=== PATIENT | female | born 1985 | race Caucasian/White ===

== ENCOUNTER → 2017-01-10 | Outpatient (CLI) | payer OTHER ==
[~2017-01-10] MED LIST: CYCL10TA9 PO; DOXY100C2 PO; HYDR-3812 PO; METH4TAB PO; NAPR500T PO; NAPR550T PO; PRD20T PO
--- NOTE | 2017-01-10 17:28 | Diagnostic Imaging Report ---
PROCEDURE: MRI lumbar spine. TECHNIQUE: Multiplanar, multisequence MRI of the lumbar spine was performed without contrast. INDICATION: Low back pain. FINDINGS: There are no previous MRI examinations available for comparison. The plain film examination of the lumbar spine performed on 04/10/2016 noted minimal narrowing of the disc space at L5-S1. There is no acute bony abnormality identified. On the T2 parasagittal images of this exam, there is mild narrowing and desiccation of the disc at L5-S1. There is a broad-based disc bulge eccentric to the left at this level. The disc compresses the left ventral aspect of the thecal sac and narrows the AP diameter to 7.9 mm. The disc is also in close proximity to the origin of both exiting nerve roots. The other intervertebral spaces are well maintained. There is no evidence for spinal stenosis or nerve root encroachment at any other level. There is no abnormal signal arising from the cord or the vertebral bodies to indicate an acute abnormality. There is no sign of a paraspinal mass. IMPRESSION: 1. There is a disc bulge centrally at L5-S1. The disc compresses the left ventral aspect of the thecal sac and does result in moderate central stenosis. The disc material is also in close proximity to the origin of the exiting nerve roots at this level. 2. The remainder of the lumbar spine is unremarkable for spinal stenosis or nerve root encroachment. 3. There is no sign of an acute bony abnormality or of a cord lesion. Dictated by: Dictated on workstation # [id number]
== END ==
LOC: RAD 15:27
DX: M51.16 Intervertebral disc disorders with radiculopathy, lumbar region (principal); M48.06 Spinal stenosis, lumbar region
CPT/HCPCS: 72148

== ENCOUNTER 2017-07-12 13:14 | Emergency (ER) | payer OTHER ==
[~2017-07-12] VITALS: Ht 162.6 cm; Wt 85.7 kg
[~2017-07-12 13:14] MED LIST changes: +ACHD5005 PO; -HYDR-3812 PO; +NAPR-1070 PO; +NAPR-1071 PO; -NAPR500T PO; -NAPR550T PO
--- NOTE | 2017-07-12 13:34 | ED Neurological Problem ---
General Stated Complaint: DIZZINESS Source: patient Exam Limitations: no limitations History of Present Illness Date Seen by Provider: Jul 12, 2017 Time Seen by Provider: 13:33 Initial Comments To ER per private vehicle with reports of left hand numbness and difficulty speaking. She awakened this morning and went to the grocery store. At about 1: 00 after returning home from the grocery store she had trouble buttoning her pants. She had difficulty speaking and tingling and numbness in the left hand. She's never had this before. She is crying and tearful on arrival to ER. She denies headache. Timing/Duration: 1 week Severity: moderate Associated Symptoms: paresthesia Allergies and Home Medications Allergies Coded Allergies: No Known Drug Allergies (Verified , 04/10/16) Home Medications No Active Prescriptions or Reported Meds Constitutional: see HPI Eyes: No Symptoms Reported Ears, Nose, Mouth, Throat: no symptoms reported Respiratory: no symptoms reported Cardiovascular: no symptoms reported Genitourinary: no symptoms reported Musculoskeletal: no symptoms reported Skin: no symptoms reported Psychiatric/Neurological: See HPI, Denies Headache Endocrine: No Symptoms Reported Past Icglvaw-Wvivvb-Zeeosw Hx Patient Social History Recent Foreign Travel: No Contact w/Someone Who Travel: No Recent Hopitalizations: Yes Immunizations Up To Date Tetanus Booster (TDap): More than 5yrs Reproductive System Hx Reproductive Disorders: No Gastrointestinal Gastrointestinal Disorders: Gall Bladder Disease Musculoskeletal Musculoskeletal Disorders: Chronic Back Pain Family Medical History Significant Family History: No Pertinent Family Hx Physical Exam Vital Signs Vital Sign - Last 12Hours 07/12/17 13:22 Temp 97.6 Pulse 88 Resp 18 B/P (MAP) 154/88 (110) Pulse Ox 98 O2 Delivery Room Air Capillary Refill : General Appearance: WD/WN, no apparent distress HEENT: PERRL/EOMI, normal ENT inspection Neck: non-tender, full range of motion Respiratory: normal breath sounds, no respiratory distress, no accessory muscle use Cardiovascular: regular rate, rhythm, no murmur Gastrointestinal: normal bowel sounds, non tender, soft Neurologic/Psychiatric: alert, normal mood/affect, oriented x 3, other (tearful ) Crainal Nerves: normal hearing, normal speech Skin: normal color, warm/dry Comments While I was in the room with her speaking to her she did appear to become more calm. During my conversation with her she states that the tingling and numbness in the left hand resolved and speech became more clear. Whether this is a result of her calming down from anxiety or not is uncertain at this time. Proceeding with stroke evaluation. Stroke Onset of Symptoms Date of Onset of Symptoms: Jul 12, 2017 Time of Symptom Onset: 13:00 Onset of Symptoms: Yes NIH Stroke Scale Assessment Select: Initial Level of Consciousness: 0=Alert (0), Level of Consciousness- Questions: 0=Answers both month/age (0), LOC Commands: 0=Performs both tasks (0) , Gaze: Normal (0), Visual Schmitt: 0=No visual loss (0), Facial Movement ( Facial Paresis): 0=Normal symmetrical mnt (0), Motor Function-Arms Right: 0=No drift (0), Motor Function-Arms Left: 0=No drift (0), Motor Function-Legs Right: 0=No drift (0), Motor Function-Legs Left: 0=No drift (0), Limb Ataxia: 0=Absent (0), Sensory: 1=Mild to Moderate loss (1), Best Language: 0=No aphasia (0), Dysarthria: 1=Mild to moderate loss (1), Extinction & Inattention: 0=No abnormality (0), Total: 2 Progress/Results/Core Measures Results/Orders Lab Results Laboratory Tests Test 07/12/17 13:20 07/12/17 14:17 Range/Units White Blood Count 8.6 4.3-11.0 10^3/uL Red Blood Count 4.84 4.35-5.85 10^6/uL Hemoglobin 14.9 11.5-16.0 G/DL Hematocrit 42 35-52 % Mean Corpuscular Volume 88 80-99 FL Mean Corpuscular Hemoglobin 31 25-34 PG Mean Corpuscular Hemoglobin Concent 35 32-36 G/DL Red Cell Distribution Width 12.7 10.0-14.5 % Platelet Count 287 130-400 10^3/uL Mean Platelet Volume 9.7 7.4-10.4 FL Neutrophils (%) (Auto) 59 42-75 % Lymphocytes (%) (Auto) 31 12-44 % Monocytes (%) (Auto) 8 0-12 % Eosinophils (%) (Auto) 1 0-10 % Basophils (%) (Auto) 0 0-10 % Neutrophils # (Auto) 5.1 1.8-7.8 X 10^3 Lymphocytes # (Auto) 2.7 1.0-4.0 X 10^3 Monocytes # (Auto) 0.7 0.0-1.0 X 10^3 Eosinophils # (Auto) 0.1 0.0-0.3 10^3/uL Basophils # (Auto) 0.0 0.0-0.1 10^3/uL Prothrombin Time 13.3 12.2-14.7 SEC INR Comment 1.0 0.8-1.4 Activated Partial Thromboplast Time 29 24-35 SEC D-Dimer < 0.27 0.00-0.49 UG/ML Sodium Level 139 135-145 MMOL/L Potassium Level 4.1 3.6-5.0 MMOL/L Chloride Level 103 98-107 MMOL/L Carbon Dioxide Level 25 21-32 MMOL/L Anion Gap 11 5-14 MMOL/L Blood Urea Nitrogen 12 7-18 MG/DL Creatinine 0.79 0.60-1.30 MG/DL Estimat Glomerular Filtration Rate > 60 BUN/Creatinine Ratio 15 Glucose Level 91 70-105 MG/DL Calcium Level 9.5 8.5-10.1 MG/DL Total Bilirubin 0.8 0.1-1.0 MG/DL Aspartate Amino Transf (AST/SGOT) 11 5-34 U/L Alanine Aminotransferase (ALT/SGPT) 12 0-55 U/L Alkaline Phosphatase 79 40-136 U/L Troponin I < 0.30 <0.30 NG/ML Total Protein 7.4 6.4-8.2 GM/DL Albumin 4.2 3.2-4.5 GM/DL Serum Alcohol < 10 <10 MG/DL Urine Color YELLOW Urine Clarity SLIGHTLY CLOUDY Urine pH 8 5-9 Urine Specific [place] 1.010 L 1.016-1.022 Urine Protein NEGATIVE NEGATIVE Urine Glucose (UA) NEGATIVE NEGATIVE Urine Ketones NEGATIVE NEGATIVE Urine Nitrite NEGATIVE NEGATIVE Urine Bilirubin NEGATIVE NEGATIVE Urine Urobilinogen NORMAL NORMAL MG/DL Urine Leukocyte Esterase NEGATIVE NEGATIVE Urine RBC (Auto) NEGATIVE NEGATIVE Urine RBC NONE /HPF Urine WBC NONE /HPF Urine Squamous Epithelial Cells 10-25 H /HPF Urine Crystals NONE /LPF Urine Bacteria NEGATIVE /HPF Urine Casts NONE /LPF Urine Mucus NEGATIVE /LPF Urine Culture Indicated NO Urine Opiates Screen NEGATIVE NEGATIVE Urine Oxycodone Screen NEGATIVE NEGATIVE Urine Methadone Screen NEGATIVE NEGATIVE Urine Propoxyphene Screen NEGATIVE NEGATIVE Urine Barbiturates Screen NEGATIVE NEGATIVE Ur Tricyclic Antidepressants Screen NEGATIVE NEGATIVE Urine Phencyclidine Screen NEGATIVE NEGATIVE Urine Amphetamines Screen NEGATIVE NEGATIVE Urine Methamphetamines Screen NEGATIVE NEGATIVE Urine Benzodiazepines Screen NEGATIVE NEGATIVE Urine Cocaine Screen NEGATIVE NEGATIVE Urine Cannabinoids Screen NEGATIVE NEGATIVE My Orders Orders - NICOLAS WALKER APRN Cbc With Automated Diff (07/12/17 13:32) Protime With Inr (07/12/17 13:32) Partial Thromboplastin Time (07/12/17 13:32) Comprehensive Metabolic Panel (07/12/17 13:32) Fibrin Degradation Products (07/12/17 13:32) Troponin I (07/12/17 13:32) Ua Culture If Indicated (07/12/17 13:32) Chest 1 View, Ap/Pa Only (07/12/17 13:32) Ekg Tracing (07/12/17 13:32) Nothing By Mouth (07/12/17 Dinner) Accucheck Stat ONCE (07/12/17 13:32) Saline Lock/Iv-Start (07/12/17 13:32) Saline Lock/Iv-Start (07/12/17 13:32) Vital Signs - Stroke Q15M (07/12/17 13:32) O2 (07/12/17 13:32) Intake & Output 06,14,22 (07/12/17 13:32) Monitor-Rhythm Ecg Trace Only (07/12/17 13:32) Dysphagia Screening Tool (07/12/17 13:32) Post Thrombolytic Adminstratio (07/12/17 13:32) Iohexol Injection (Omnipaque 350 Mg/Ml 1 (07/12/17 13:45) Ns (Ivpb) (Sodium Chloride 0.9% Ivpb Bag (07/12/17 13:45) Ct Angio Head/Neck (07/12/17 13:40) Lorazepam Injection (Ativan Injection) (07/12/17 13:45) Drug Screen Stat (Urine) (07/12/17 14:11) Alcohol (07/12/17 14:11) Medications Given in ED Current Medications Medications Dose Ordered Sig/Camron Route Start Time Stop Time Status Last Admin Dose Admin Iohexol 75 ml ONCE ONCE IV 07/12/17 13:45 07/12/17 13:48 DC 07/12/17 13:55 75 ML Lorazepam 0.5 mg ONCE ONCE IVP 07/12/17 13:45 07/12/17 13:46 DC 07/12/17 13:48 0.5 MG Sodium Chloride 100 ml ONCE ONCE IV 07/12/17 13:45 07/12/17 13:48 DC 07/12/17 13:55 100 ML Vital Signs/I&O Vital Sign - Last 12Hours 07/12/17 07/12/17 13:22 14:36 Temp 97.6 Pulse 88 69 Resp 18 18 B/P (MAP) 154/88 (110) 112/71 (85) Pulse Ox 98 97 O2 Delivery Room Air Room Air Progress Note : Progress Note 1320-initial NIH stroke scale score of 2 with one point for mild dysarthria and 1 point for mild sensory loss left arm. Before I left the room during this exam the symptoms resolved completely and she was at an NIH stroke scale of 0. 1457- speech is clear. Left arm numbness is confined to the hand. Proximal to the wrist her sensation is normal. She states that this numbness affects all fingers. Capillary refill is brisk, radial pulse +2 bilaterally. Diagnostic Imaging Diagonstic Imaging: Xray Comments NAME: JOSE RAFAEL ROSA MED REC#: [id number] PT STATUS: REG ER : 1985 PHYSICIAN: NICOLAS WALKER APRN ADMIT DATE: 07/12/17/ER Signed Date of Exam:07/12/17 CHEST 1 VIEW, AP/PA ONLY Indication: Numbness and loss of speech Comparison: 03/31/16 Findings: Upright portable view of the chest is obtained. Heart size is normal. The pulmonary vessels appear unremarkable. There is no pneumothorax, mediastinal widening or pleural fluid. Lungs are clear. Impression: Negative chest. Dictated by: Dictated on workstation # [id number] Dict: 07/12/17 141 Trans: 07/12/17 1429 [facility] [id number] Interpreted by: VINCENT NATH DO Electronically signed by: VINCENT NATH DO 07/12/17 1429 NAME: ORADAVID SILVERDARCI Aguilera MED REC#: [id number] PT STATUS: REG ER : 1985 PHYSICIAN: NICOLAS WALKER APRN ADMIT DATE: 07/12/17/ER Draft Date of Exam:07/12/17 CT ANGIO HEAD/NECK PROCEDURE: CT angiography of the head and CT angiography of the neck with and without contrast. TECHNIQUE: Contiguous noncontrast images were obtained from the skull base through the vertex. After intravenous contrast administration, helical CT angiography of the neck was performed. Source data was reformatted into multiple MIP projections. Delayed post contrast acquisition was also obtained. INDICATION: Left hand numbness. Slurred speech. FINDINGS: CT head: There is no evidence of intracranial hemorrhage. Ventricles and cortical gyral pattern are normal. Basal cisterns are clear. No extra-axial fluid collection. Mastoid air cells and paranasal sinuses are well-aerated. CT angiography of the head and neck: There is good opacification of the carotid and vertebral arteries which show normal takeoff from the cervical vessels. The carotid arteries show no evidence of carotid dissection. There is no atherosclerotic disease. Internal carotid arteries are widely patent to the carotid siphons. The vertebral arteries are symmetrical and show good enhancement throughout the cervical region with both vertebral arteries supplying the basilar artery. Intracranial images show normal enhancement of the anterior, middle and posterior cerebral arteries as well as the cerebellar arteries. There is no evidence of occlusive disease. No stenosis or spasm demonstrated. Delayed images show no evidence of abnormal enhancing masses. IMPRESSION: Normal CT angiography of the head and neck. Dictated on workstation # [id number] Dict: 07/12/17 1535 Trans: 07/12/17 1549 [facility] [id number] Interpreted by: BON LY MD Electronically signed by: Departure Impression Impression: Primary Impression: Anxiety Additional Impression: Carpal tunnel syndrome, left upper limb Disposition: HOME, SELF-CARE Condition: Stable Departure-Patient Inst. Decision time for Depature: 15:52 Referrals: [facility] (PCP/Family) Primary Care Physician Patient Instructions: Carpal Tunnel Syndrome Add. Discharge Instructions: 1. Return to ER promptly for any worsening or recurrent symptoms 2. Follow-up with your doctor on Friday for recheck. Scripts No Active Prescriptions or Reported Meds NICOLAS WALKER APRN Jul 12, 2017 13:34
[2017-07-12 13:39] LABS: BASOPHILS % (AUTO) 0 % (0-10); EOSINOPHILS # (AUTO) 0.1 10^3/uL (0.0-0.3); EOSINOPHILS % (AUTO) 1 % (0-10); HEMATOCRIT 42 % (35-52); HEMOGLOBIN 14.9 G/DL (11.5-16.0); LYMPHOCYTES # (AUTO) 2.7 X 10^3 (1.0-4.0); LYMPHOCYTES % (AUTO) 31 % (12-44); MEAN CORPUSCULAR HEMOGLOBIN 31 PG (25-34); MEAN CORPUSCULAR HGB CONC 35 G/DL (32-36); MEAN CORPUSCULAR VOLUME 88 FL (80-99); MEAN PLATELET VOLUME 9.7 FL (7.4-10.4); MONOCYTES # (AUTO) 0.7 X 10^3 (0.0-1.0); MONOCYTES % (AUTO) 8 % (0-12); NEUTROPHILS # (AUTO) 5.1 X 10^3 (1.8-7.8); NEUTROPHILS % (AUTO) 59 % (42-75); PLATELET COUNT 287 10^3/uL (130-400); RED BLOOD COUNT 4.84 10^6/uL (4.35-5.85); RED CELL DISTRIBUTION WIDTH 12.7 % (10.0-14.5); WHITE BLOOD COUNT 8.6 10^3/uL (4.3-11.0)
[2017-07-12] MEDS ORDERED: IOHEXOL 350 MG/ML 100 ML (OMNIPAQUE 350) VIAL IV ONE (13:45)
[2017-07-12] MEDS ORDERED: LORazepam INJ 2 MG/ML (ATIVAN) VIAL IVP ONE (13:45)
[2017-07-12] MEDS ORDERED: NS 100 ML (IVPB) BAG IV ONE (13:45)
[2017-07-12 13:49] LABS: PROTHROMBIN TIME PATIENT 13.3 SEC (12.2-14.7)
[2017-07-12 13:50] LABS: PARTIAL THROMBOPLASTIN TIME 29 SEC (24-35)
[2017-07-12 13:52] LABS: FIBRIN DEGRADATION PRODUCTS < 0.27 UG/ML (0.00-0.49)
[2017-07-12 14:01] LABS: ALANINE AMINOTRANSFERASE 12 U/L (0-55); ALBUMIN 4.2 GM/DL (3.2-4.5); ALKALINE PHOSPHATASE 79 U/L (40-136); BILIRUBIN,TOTAL 0.8 MG/DL (0.1-1.0); BUN/CREATININE RATIO 15; CALCIUM 9.5 MG/DL (8.5-10.1); CARBON DIOXIDE 25 MMOL/L (21-32); CHLORIDE 103 MMOL/L (98-107); CREATININE SERUM 0.79 MG/DL (0.60-1.30); GFR ESTIMATED > 60; GLUCOSE 91 MG/DL (70-105); POTASSIUM 4.1 MMOL/L (3.6-5.0); SODIUM 139 MMOL/L (135-145); TOTAL PROTEIN 7.4 GM/DL (6.4-8.2)
--- NOTE | 2017-07-12 14:23 | Diagnostic Imaging Report ---
Indication: Numbness and loss of speech Comparison: 03/31/16 Findings: Upright portable view of the chest is obtained. Heart size is normal. The pulmonary vessels appear unremarkable. There is no pneumothorax, mediastinal widening or pleural fluid. Lungs are clear. Impression: Negative chest. Dictated by: Dictated on workstation # [id number]
[2017-07-12 14:29] LABS: BILIRUBIN,URINE NEGATIVE (NEGATIVE); CLARITY,URINE SLIGHTLY CLOUDY; COLOR,URINE YELLOW; GLUCOSE, URINE (UA) NEGATIVE (NEGATIVE); KETONES,URINE NEGATIVE (NEGATIVE); LEUKOCYTE ESTERASE ,URINE NEGATIVE (NEGATIVE); NITRITE,URINE NEGATIVE (NEGATIVE); PH,URINE 8 (5-9); PROTEIN,URINE NEGATIVE (NEGATIVE); UROBILINOGEN,URINE NORMAL (NORMAL)
[2017-07-12 14:36] VITALS: BP 112/71
[2017-07-12 14:41] LABS: BACTERIA,URINE NEGATIVE /HPF
[2017-07-12 14:43] LABS: AMPHETAMINE SCREEN, URINE NEGATIVE (NEGATIVE); BARBITURATE SCREEN URINE NEGATIVE (NEGATIVE); BENZODIAZEPINES SCREEN URINE NEGATIVE (NEGATIVE); CANNABINOID SCREEN, URINE NEGATIVE (NEGATIVE); COCAINE SCREEN URINE NEGATIVE (NEGATIVE); METHADONE STAT NEGATIVE (NEGATIVE); METHAMPHETAMINE SCREEN URINE S NEGATIVE (NEGATIVE); OPIATE SCREEN URINE NEGATIVE (NEGATIVE); OXYCODONE STAT NEGATIVE (NEGATIVE); PROPOXYPHENE STAT NEGATIVE (NEGATIVE); TRICYCLIC ANTIDEPRESSANTS SCRE NEGATIVE (NEGATIVE)
--- NOTE | 2017-07-12 15:49 | Diagnostic Imaging Report ---
PROCEDURE: CT angiography of the head and CT angiography of the neck with and without contrast. TECHNIQUE: Contiguous noncontrast images were obtained from the skull base through the vertex. After intravenous contrast administration, helical CT angiography of the neck was performed. Source data was reformatted into multiple MIP projections. Delayed post contrast acquisition was also obtained. INDICATION: Left hand numbness. Slurred speech. FINDINGS: CT head: There is no evidence of intracranial hemorrhage. Ventricles and cortical gyral pattern are normal. Basal cisterns are clear. No extra-axial fluid collection. Mastoid air cells and paranasal sinuses are well-aerated. CT angiography of the head and neck: There is good opacification of the carotid and vertebral arteries which show normal takeoff from the cervical vessels. The carotid arteries show no evidence of carotid dissection. There is no atherosclerotic disease. Internal carotid arteries are widely patent to the carotid siphons. The vertebral arteries are symmetrical and show good enhancement throughout the cervical region with both vertebral arteries supplying the basilar artery. Intracranial images show normal enhancement of the anterior, middle and posterior cerebral arteries as well as the cerebellar arteries. There is no evidence of occlusive disease. No stenosis or spasm demonstrated. Delayed images show no evidence of abnormal enhancing masses. IMPRESSION: Normal CT angiography of the head and neck. Dictated by: Dictated on workstation # [id number]
[2017-07-12 16:18] VITALS: BP 120/77
== END 2017-07-12 16:18 | disposition home or self-care (01) ==
LOC: EDUNIT# 13:14 → ER 13:16
DX: G56.02 Carpal tunnel syndrome, left upper limb (principal); F41.9 Anxiety disorder, unspecified; Z87.19 Personal history of other diseases of the digestive system
CPT/HCPCS: 36415; 70496; 70498; 71045; 80053; 80306; 80320; 81000; 84484; 85025; 85379; 85610; 85730; 93005; 93041; 96374